=== PATIENT | female | born 1985 | race Caucasian/White ===

== ENCOUNTER 2017-12-05 07:10 | Inpatient (IN) | payer OTHER ==
[2017-12-05] MEDS ORDERED: FAMOTIDINE 20 MG INJ (07:58)
[2017-12-05] MEDS ORDERED: OXYTOCIN 10 UNIT INJ (07:58)
[2017-12-05] MEDS ORDERED: morphine SULFATE/PF (10 MG/10 ML) INJ (07:58)
[2017-12-05] MEDS ORDERED: METHYLERGONOVINE 0.2 MG INJ IM ×2 (08:00→15:30)
[2017-12-05] MEDS ORDERED: OXYTOCIN 30 UNITS/LR 500 ML IV ×3 (08:00→15:30)
[2017-12-05] MEDS ORDERED: CEFAZOLIN 2 GM/50 ML (PMX) 50 ML IV (08:00)
[2017-12-05] MEDS ORDERED: MISOPROSTOL 200 MCG TAB PR ×2 (08:00→15:30)
[2017-12-05] MEDS ORDERED: CARBOPROST 250 MCG INJ IM ×2 (08:00→15:30)
[2017-12-05] MEDS: LACTATED RINGER'S 1,000 ML IV ×2 (08:04→17:19)
[2017-12-05 08:17] LABS: ADD MAN DIFF? NO
[2017-12-05 08:25] LABS: WHITE BLOOD COUNT 8.3 10^3/ul (4.8-10.8)
[2017-12-05 08:25] LABS: BASOPHILS % 0.1 % (0.0-2.0); EOSINOPHILS # 0.1 10^3/ul (0.0-0.5); EOSINOPHILS % 0.6 % (0.0-7.0); HEMOGLOBIN 12.6 g/dl (12.0-16.0); LYMPHOCYTES # 1.4 10^3/ul (0.8-2.9); LYMPHOCYTES % 17.4 % (15.0-51.0); MEAN CORPUSCULAR HEMOGLOBIN 32.3 pg (29.0-33.0); MEAN CORPUSCULAR VOLUME 92.3 fl (82.0-101.0); MEAN PLATELET VOLUME 9.5 fl (7.4-10.4); MONOCYTE # 0.4 10^3/ul (0.3-0.9); MONOCYTES % 5.2 % (0.0-11.0); NEUTROPHIL # 6.3 10^3/ul (1.6-7.5); NEUTROPHILS % 76.2 % (39.0-77.0); PLATELET COUNT 274 10^3/UL (140-415); RED CELL DISTRIBUTION WIDTH 13.2 % (11.5-14.5)
[2017-12-05 09:02] LABS: INR 0.88; PT RATIO 0.9
[2017-12-05 09:03] LABS: PARTIAL THROMBOPLASTIN TIME 26.2 Sec (25.0-35.0)
[2017-12-05] MEDS: ONDANSETRON 4 MG INJ IV ×2 (10:37→14:23)
[2017-12-05] MEDS: FAMOTIDINE 20 MG INJ IV (10:37)
[2017-12-05] MEDS: METOCLOPRAMIDE 10 MG INJ IV ×2 (10:37→14:46)
[2017-12-05] MEDS: OXYTOCIN 30 UNITS/LR 500 ML IV ×2 (12:25→16:08)
[2017-12-05] MEDS ORDERED: FENTAnyl 50 MCG/ML VIAL IV ×2 (13:00)
[2017-12-05] MEDS ORDERED: KETOROLAC 30 MG INJ IV (13:00)
[2017-12-05] MEDS ORDERED: DIPHENHYDRAMINE 50 MG INJ IV ×2 (13:00)
[2017-12-05] MEDS ORDERED: HYDROmorphONE 0.5 MG/0.5 ML SYG IV ×2 (13:00)
[2017-12-05] MEDS ORDERED: NALOXONE (0.4 MG/ML) INJ IV (13:00)
[2017-12-05] MEDS ORDERED: HYDROmorphONE (0.2 MG/ML) 10ML SYG IV ×2 (13:00)
[2017-12-05] MEDS ORDERED: ZOLPIDEM 5 MG TAB PO (13:00)
[2017-12-05] MEDS ORDERED: MEPERIDINE 25 MG INJ IV (13:00)
[2017-12-05] MEDS ORDERED: NALBUPHINE HCL (10 MG/1 ML) INJ IV (13:00)
[2017-12-05] MEDS ORDERED: ONDANSETRON 4 MG INJ IV (13:00)
[2017-12-05 13:19] LABS: HEPATITIS B SURFACE ANTIGEN NEGATIVE (NEGATIVE)
[2017-12-05 14:58] LABS: RAPID PLASMA REAGIN NONREACTIVE (NR)
[2017-12-05] MEDS ORDERED: LANOLIN 7 GM TUBE TOP (15:30)
[2017-12-05] MEDS ORDERED: NACL 0.9% 3 ML SYG IV (15:30)
[2017-12-05] MEDS: KETOROLAC 30 MG INJ IV (17:18)
[2017-12-06] MEDS: LACTATED RINGER'S 1,000 ML IV ×2 (00:35→09:00)
[2017-12-06] MEDS: KETOROLAC 30 MG INJ IV ×2 (06:01→11:26)
[2017-12-06] MEDS: IBUPROFEN 800 MG TAB PO ×2 (14:00→21:04)
[2017-12-06 17:56] LABS: ADD MAN DIFF? NO
[2017-12-06 17:57] LABS: WHITE BLOOD COUNT 10.4 10^3/ul (4.8-10.8)
[2017-12-06 17:57] LABS: BASOPHILS % 0.1 % (0.0-2.0); EOSINOPHILS # 0.1 10^3/ul (0.0-0.5); EOSINOPHILS % 0.8 % (0.0-7.0); HEMATOCRIT 32.9 % (37.0-47.0); HEMOGLOBIN 11.1 g/dl (12.0-16.0); LYMPHOCYTES # 1.4 10^3/ul (0.8-2.9); MEAN CORPUSCULAR HEMOGLOBIN 31.9 pg (29.0-33.0); MEAN CORPUSCULAR HGB CONC 33.7 g/dl (32.0-37.0); MEAN CORPUSCULAR VOLUME 94.5 fl (82.0-101.0); MEAN PLATELET VOLUME 9.5 fl (7.4-10.4); MONOCYTE # 0.6 10^3/ul (0.3-0.9); MONOCYTES % 5.9 % (0.0-11.0); NEUTROPHIL # 8.3 10^3/ul (1.6-7.5); NEUTROPHILS % 79.7 % (39.0-77.0); PLATELET COUNT 254 10^3/UL (140-415); RED BLOOD COUNT 3.48 10^6/ul (4.20-5.40); RED CELL DISTRIBUTION WIDTH 13.4 % (11.5-14.5)
[2017-12-06] MEDS: HYDROCODONE/APAP (5/325) TAB PO (18:19)
[2017-12-07] MEDS: IBUPROFEN 800 MG TAB PO ×3 (05:26→21:28)
[2017-12-07] MEDS: NA PHOSPHATE/BIPHOS 133 ML ENEMA PR (08:10)
[2017-12-07] MEDS: INFLUENZA VIRUS VACCINE 0.5 ML SYG IM* (17:54)
[2017-12-08] MEDS: IBUPROFEN 800 MG TAB PO ×2 (05:43→14:45)
[2017-12-08] MEDS: MEASLES,MUMPS,RUBELLA VACCINE INJ SC* (09:00)
[2017-12-08] MEDS: DIPHTH/TET/ACEL PERTUSS (ADULT) 0.5 ML VIAL IM* (14:47)
== END 2017-12-08 18:37 | disposition home or self-care (01) | DRG 766 ==
LOC: L-D 07:10 → PP1 15:26
PROVIDERS: Obstetrics & Gynecology
PROC: 10D00Z1 Extraction of Products of Conception, Low, Open Approach (ICD-10-PCS; principal; 2017-12-05 09:00)
PROC: 0UL70ZZ Occlusion of Bilateral Fallopian Tubes, Open Approach (ICD-10-PCS; 2017-12-05 09:00)
PROC: 3E033VJ Introduction of Other Hormone into Peripheral Vein, Percutaneous Approach (ICD-10-PCS; 2017-12-05 09:00)
DX: O34.211 Maternal care for low transverse scar from previous cesarean delivery (principal); N73.6 Female pelvic peritoneal adhesions (postinfective); Z30.2 Encounter for sterilization; Z37.0 Single live birth; Z3A.38 38 weeks gestation of pregnancy
CPT/HCPCS: 85025; 85610; 85730; 86592; 86850; 86900; 86901; 87340; 88302; 90715